=== PATIENT | female | born 1970 | race Caucasian/White ===

== ENCOUNTER 2017-12-24 10:42 | Emergency (ER) | payer SELFPAY ==
[2017-12-24 10:59] VITALS: BP 118/71; PULSE 66; TEMP 98; BMI 26.5
--- NOTE | 2017-12-24 11:30 | PDOC ---
History of Present Illness - General Chief Complaint: Ear Problem Stated Complaint: HEADACHE/EARACHE Time Seen by Provider: 12/24/17 11:19 - History of Present Illness Initial Comments: 47 rolled female without comorbidities presents for evaluation of right ear pain and right neck pain times one day without other associated symptoms. Has a past medical history significant for anxiety. 12/24/17 11:25 Past History - Past Medical History Allergies/Adverse Reactions: Allergies Allergy/AdvReac Type Severity Reaction Status Date / Time Penicillins AdvReac Severe Difficulty Verified 12/24/17 10:55 Breathing Home Medications: Ambulatory Orders Clindamycin [Cleocin -] 300 mg PO Q6HPO 10 Days #40 capsule 12/24/17 COPD: No Psychiatric Problems: Yes (PTSD,ANXIETY) - Suicide/Smoking/Psychosocial Hx Smoking History: Current every day smoker Have you smoked in the past 12 months: Yes Number of Cigarettes Smoked Daily: 20 Information on smoking cessation initiated: No Hx Alcohol Use: No Drug/Substance Use Hx: No Review of Systems - Review of Systems HEENTM: Yes: Ear Pain Musculoskeletal: Yes: Neck Pain All Other Systems: Reviewed and Negative *Physical Exam - Vital Signs Last Vital Signs Temp Pulse Resp BP Pulse Ox 98.0 F 66 18 118/71 99 12/24/17 10:55 12/24/17 10:55 12/24/17 10:55 12/24/17 10:55 12/24/17 10:55 - Physical Exam Comments: HEAD: NC/AT EYES: Conjuntiva clear Ears: Canals and TM's normal there is tenderness about the mastoid process. NOSE: No d/c THROAT: Moist mucous membrances, oral pharanx clear, uvula midline NECK: Supple without adenopathy CARDIAC: S1 S2 LUNGS: CTA Full and Equal breath sounds ABDOMEN: Soft NT ND MS: Full ROM in all joints without edema NEUROLOGIC: No gross sensory or motor deficits, NVID SKIN: Normal color and temperature no lesions or rashes 12/24/17 11:30 Medical Decision Making - Medical Decision Making Clinically she has mastitis I will treat her with clindamycin she's been ALLERGIC, have her follow-up with ENT 12/24/17 11:30 *DC/Admit/Observation/Transfer Diagnosis at time of Disposition: Mastoiditis - Discharge Dispostion Disposition: HOME Condition at time of disposition: Stable Decision to Admit order: No - Prescriptions Prescriptions: Clindamycin [Cleocin -] 300 mg PO Q6HPO 10 Days #40 capsule - Referrals Referrals: Ceasar Webster MD [Staff Physician] - - Patient Instructions Printed Discharge Instructions: Mastoiditis, DI for Mastoiditis-Adult Additional Instructions: Please take the antibiotics as directed. Return to the emergency room should symptoms worsen or go unresolved and follow-up with your nose and throat doctor in one to 2 days for further evaluation and treatment options. He may take Tylenol and Motrin as directed for pain. - Post Discharge Activity
== END 2017-12-24 11:35 | disposition home or self-care (01) ==
LOC: JERFT 10:42
DX: H70.891 Other mastoiditis and related conditions, right ear (principal); Z88.0 Allergy status to penicillin
CPT/HCPCS: 99281-25